=== PATIENT | female | born 1970 | race Hispanic/Latino ===

== ENCOUNTER → 2017-08-29 | Day surgery (SDC) | payer BC ==
[~2017-08-29] MED LIST: CARAFATE1 GM/10 ML PO; FENTANYL CITRATE/PF 100MCG/2 ML INJ ONE; HYDROCODON-ACE1 EAC3 PO; IBUPROFEN PO; LIDOCAINE HCL 2% LOCAL INJ 5 ML SDV VIAL INJ ONE; LYRICA50 MG PO; MIDAZOLAM HCL 2 MG/2 ML VIAL ONE; PHENERGAN25 MG/1 ML PO; PRENATAL MULTI1 EACH; PROPOFOL IV EMULSION 10 MG/ML 20 ML VIAL ONE; PYRIDIUM200 MG PO; SOLODYN80 MG PO; TYLENOL PO; VITAMIN D3400 UNIT PO; Z.0.ADIPEX-P37.5 MG; ZOFRAN ODT4 MG PO
--- OUTSIDE RECORDS SUMMARY | 2017-08-29 06:54 | XMS REPORT | Clinical Summary ---
Author Author [facility] Organization [facility] Address Unknown Phone Unavailable Care Team Providers Care Supervisor Transferring And Boxing Name Role Phone Asked, Pcp PCP Unavailable Allergies Active Allergy Reactions Severity Noted Date Comments Coconut Swelling 09/14/2016 Current Medications Prescription Sig. Disp. Refills Start End Date Status Date ondansetron (ZOFRAN) 4 MG Take 4 mg by mouth every 6 08/24/19 Active tablet 6 (six) hours as needed. 17 CARAFATE 100 mg/mL TAKE 10 MLS DAILY 0 07/20/19 Active suspension NEEDED 17 HEMOCYTE-PLUS 106 mg Take 1 capsule by mouth 2 2 07/06/19 Active iron- 1 mg capsule (two) times a day. 17 LINZESS 290 mcg capsule TAKE 1 CAPSULE BY MOUTH 3 07/10/19 09/15/19 Discontin 30 MINUTES PRIOR TO 17 ued MEAL colesevelam (WELCHOL) 625 Take 1 tablet (625 mg 30 tablet 0 09/15/19 10/15/19 mg tablet total) by mouth daily for 17 17 30 days. promethazine (PHENERGAN) Take 1 tablet (25 mg 90 tablet 0 09/15/19 10/15/19 25 MG tablet total) by mouth every 6 17 17 (six) hours as needed for nausea or vomiting for up to 30 days. Active Problems Problem Noted Date Nausea and vomiting 09/14/2016 Functional diarrhea 09/14/2016 S/P partial gastrectomy 09/14/2016 Family history of gastric cancer 09/14/2016 Family history of colon cancer 09/14/2016 Intestinal metaplasia of gastric mucosa 09/14/2016 Encounters Date Type Specialty Care Team Description 09/29/2016 Telephone Gastroenterology Alka Rodríguez RN 09/29/2016 Telephone Gastroenterology Weston Heath LVN 09/14/2016 Office Visit Gastroenterology Torres Lanza MD Non- intractable vomiting with nausea, unspecified vomiting type (Primary Dx); Functional diarrhea; Intestinal metaplasia of gastric mucosa; S/P partial gastrectomy; Family history of gastric cancer; Family history of colon cancer after 08/28/2016 Social History Tobacco Use Types Packs/Day Years Used Date Never Assessed Sex Assigned at Date Recorded Not on file Last Filed Vital Signs Vital Sign Reading Time Taken Blood Pressure 129/86 09/14/2016 3:47 PM CDT Pulse 83 09/14/2016 3:47 PM CDT Temperature 36.7 C (98 F) 09/14/2016 3:47 PM CDT Respiratory Rate - - Oxygen Saturation - - Inhaled Oxygen - - Concentration Weight 63 kg (139 lb) 09/14/2016 3:47 PM CDT Height 160 cm (5' 3") 09/14/2016 3:47 PM CDT Body Mass Index 24.62 09/14/2016 3:47 PM CDT Plan of Treatment Health Maintenance Due Date Last Done Comments PAP SMEAR 1991 INFLUENZA VACCINE 01/18/2017 Results * Immunoglobulin A (09/17/2016 8:06 AM) Component Value Ref Range IgA 207 81 - 463 mg/dL Specimen Performing Laboratory [facility] Narrative FASTING:YES * Tissue transglutaminase Ab, IgA (09/17/2016 8:06 AM) Component Value Ref Range Tissue transglutaminase <1 U/mL Ab, IgA Comment: <4 No Antibody Detected > OR=4 Antibody Detected Specimen Performing Laboratory [facility] Narrative FASTING:YES * INTERPRETATION (REFLEX [facility]) (09/17/2016 8:06 AM) Component Value Ref Range Interpretation SEE NOTE Comment: No serological evidence of celiac disease. tTG IgA may normalize in individuals with celiac disease who maintain a gluten-free diet. Consider HLA DQ2 and DQ8 testing to rule out celiac disease. Celiac disease is extremely rare in the absence of DQ2 or DQ8. Specimen Performing Laboratory [facility] Narrative FASTING:YES * Gastrin level (09/17/2016 8:06 AM) Component Value Ref Range Gastrin <15 < QX=349 pg/mL Comment: NOTE: Reference range applies to fasting specimen only. Specimen Performing Laboratory Blood [facility] Narrative FASTING:YES after 08/28/2016 Insurance Payer Benefit Subscriber ID Type Phone Address Plan / Group [facility] xxxxxxxxxxxx PPO CHOICE PPO/FEDERA L EMPL PPO BCBS [facility] xxxxxxxxxxxx PPO CHOICE PPO/FEDERA L EMPL PPO Work: [address] [place], [place] [phone] RICH [place] [id number] Home:
== END | disposition home or self-care (01) ==
LOC: OR 06:51
PROVIDERS: ATTEND Surgery
DX: K29.50 Unspecified chronic gastritis without bleeding (principal); Z90.3 Acquired absence of stomach [part of]
CPT/HCPCS: 43239; 81025; 88305; 88312; 93005; J2001; J2250

== ENCOUNTER → 2018-03-02 | Day surgery (SDC) | payer BC ==
[~2018-03-02] MED LIST changes: +DEXAMETHASONE SOD PHOS 10 MG/1 ML VIAL IV ONE; +IOPAMIDOL 200 MG/ML 20 ML VIAL IT ONE; +LIDOCAINE HCL 1% LOCAL INJ 20 ML VIAL ONE; -LIDOCAINE HCL 2% LOCAL INJ 5 ML SDV VIAL INJ ONE; +ONDANSETRON HCL INJ 2 MG/ML VIAL IV ONE; +PHENERGAN PO; +PRENATAL COMPL1 EACH PO; +PROPOFOL IV EMULSION 10 MG/ML 20 ML VIAL IV ONE; -PROPOFOL IV EMULSION 10 MG/ML 20 ML VIAL ONE; +VITAMIN B-12 INJ
[2018-03-02 08:35] VITALS: BP 101/63
--- OUTSIDE RECORDS SUMMARY | 2018-03-23 07:38 | XMS REPORT | Clinical Summary ---
Author Author [facility] Organization [facility] Address Unknown Phone Unavailable Care Team Providers Care Loom Overhauler Name Role Phone Asked, Pcp PCP Unavailable [...] mg capsule (two) times a day. 17 Active Problems Problem Noted Date Nausea and vomiting 09/14/2016 Functional diarrhea 09/14/2016 S/P partial gastrectomy 09/14/2016 Family history of gastric cancer 09/14/2016 Family history of colon cancer 09/14/2016 Intestinal metaplasia of gastric mucosa 09/14/2016 Social History Tobacco Use Types Packs/Day Years Used Date Never Assessed Sex Assigned at Date Recorded Not on file Last Filed Vital Signs Not on file Plan of Treatment Health Maintenance Due Date Last Done Comments CERVICAL CANCER SCREENING 1991 INFLUENZA VACCINE 01/18/2018 Results Not on fileafter 03/01/2017 Insurance Payer Benefit Subscriber ID Type Phone Address Plan / Group BCBS BCBS xxxxxxxxxxxx PPO CHOICE PPO/FEDERA L EMPL PPO BCBS BCBS xxxxxxxxxxxx PPO CHOICE PPO/[place] [address] Home:
== END | disposition home or self-care (01) ==
LOC: OR 05:36
PROVIDERS: ATTEND Physical Medicine & Rehabilitation Pain Medicine
DX: M54.12 Radiculopathy, cervical region (principal); K21.9 Gastro-esophageal reflux disease without esophagitis; M54.81 Occipital neuralgia; G56.02 Carpal tunnel syndrome, left upper limb; Z85.028 Personal history of other malignant neoplasm of stomach; Z90.3 Acquired absence of stomach [part of]
CPT/HCPCS: 77003; 81025; J1100; J2001; J2250; J2405; Q9966

== ENCOUNTER 2018-07-26 18:11 | Emergency (ER) | payer BC ==
[~2018-07-26] VITALS: Ht 160 cm; Wt 63.5 kg
[~2018-07-26 18:11] MED LIST changes: -DEXAMETHASONE SOD PHOS 10 MG/1 ML VIAL IV ONE; -FENTANYL CITRATE/PF 100MCG/2 ML INJ ONE; -IOPAMIDOL 200 MG/ML 20 ML VIAL IT ONE; -LIDOCAINE HCL 1% LOCAL INJ 20 ML VIAL ONE; -MIDAZOLAM HCL 2 MG/2 ML VIAL ONE; -ONDANSETRON HCL INJ 2 MG/ML VIAL IV ONE; -PROPOFOL IV EMULSION 10 MG/ML 20 ML VIAL IV ONE
--- OUTSIDE RECORDS SUMMARY | 2018-07-26 18:15 | XMS REPORT | Clinical Summary ---
Author Author [facility] Organization [facility] Address Unknown Phone Unavailable Care Team Providers Care Director Of Retail Merchandising Name Role Phone Asked, No Pcp PCP Unavailable Allergies Comments Active Allergy Reactions Severity Noted Date Coconut Swelling 09/14/2016 Medications End Date Status Medication Sig Dispensed Refills Start Date Active ondansetron (ZOFRAN) 4 MG Take 4 mg by 6 tablet mouth every 6 7 (six) hours as needed. Active CARAFATE 100 mg/mL TAKE 10 MLS 0 suspension DAILY 7 NEEDED Active HEMOCYTE-PLUS 106 mg Take 1 2 iron- 1 mg capsule capsule by 7 mouth 2 (two) times a day. Active Problems Problem Noted Date Nausea and vomiting 09/14/2016 Functional diarrhea 09/14/2016 S/P partial gastrectomy 09/14/2016 Family history of gastric cancer 09/14/2016 Family history of colon cancer 09/14/2016 Intestinal metaplasia of gastric mucosa 09/14/2016 Social History Date Tobacco Use Types Packs/Day Years Used Never Assessed Sex Assigned at Date Recorded Not on file Industry Job Start Date Occupation Not on file Not on file Not on file Travel End Travel History Travel Start No recent travel history available. Last Filed Vital Signs Not on file Plan of Treatment Health Maintenance Due Date Last Done Comments CERVICAL CANCER SCREENING 1991 INFLUENZA VACCINE 01/18/2018 Results Not on fileafter 07/25/2017 Insurance Payer Benefit Subscriber ID Type Phone Address Plan / Group BCBS BCBS xxxxxxxxxxxx PPO CHOICE PPO/FEDERA L EMPL PPO BCBS BCBS xxxxxxxxxxxx PPO CHOICE PPO/FEDERA L EMPL PPO Advance Directives Patient has advance care planning documents on file. For more information, farzana santos contact: Chris Caruso [address] [place] [address]
--- OUTSIDE RECORDS SUMMARY | 2018-07-26 18:15 | XMS REPORT | Continuity of Care Document ---
Author Author [facility] Address Unknown Phone Unavailable Problems Problem Status Onset Date Classification Date Reported Comments Source Acute sinusitis 09/04/2016 Diagnosis 09/05/2016 [facility] Feeling feverish 09/04/2016 Diagnosis 09/05/2016 [facility] Pain in throat 09/04/2016 Diagnosis 09/05/2016 [facility] Cough 09/04/2016 Diagnosis 09/05/2016 [facility] Acute Urinary Tract Infection Problem 09/05/2016 [facility] Influenza-like Symptoms Problem 09/05/2016 [facility] Medications Medication Details Route Status Patient Instructions Ordering Provider Order Date Source Amoxicillin 875 MG / Clavulanate 125 MG Oral Tablet [Augmentin] Augmentin 875 mg-125 mg tablet Take 1 tablet every 12 hours by oral route with meals for 7 days. Active [facility] Acetaminophen 325 MG / butalbital 50 MG / Caffeine 40 MG Oral Capsule mdcjbsfliy-jbkurgfguogtd-xgdscaxp 50 mg-325 mg-40 mg capsule Active [facility] Cholecalciferol 400 UNT Oral Capsule cholecalciferol (vitamin D3) 400 unit capsule TAKE 1 CAPSULE DAILY. Active [facility] dexlansoprazole 60 MG Delayed Release Oral Capsule [Dexilant] Dexilant 60 mg capsule, delayed release TAKE 1 CAPSULE DAILY EVERY MORNING BEFORE BREAKFAST. Active [facility] Fluarix Quad (PF) 60 mcg (15 mcg x 4)/0.5 mL IM syringe Fluarix Quad (PF) 60 mcg (15 mcg x 4)/0.5 mL IM syringe Active [facility] Hemocyte-Plus 106 mg iron-1 mg capsule Hemocyte-Plus 106 mg iron-1 mg capsule TAKE 1 CAPSULE TWICE DAILY Active [facility] linaclotide 0.29 MG Oral Capsule [Linzess] Linzess 290 mcg capsule Active [facility] pantoprazole 40 MG Delayed Release Oral Tablet pantoprazole 40 mg tablet,delayed release Active [facility] benzonatate 100 MG Oral Capsule [Tessalon Perles] Tessalon Perles 100 mg capsule Take 1 capsule 3 times a day by oral route as needed. Active [facility] Allergies, Adverse Reactions, Alerts Substance Category Reaction Severity Reaction type Status Date Reported Comments Source Immunizations Immunization Date Given Site Status Last Updated Comments Source influenza, injectable, quadrivalent 02/19/2016 completed [facility] influenza, injectable, quadrivalent 03/29/2015 completed [facility] Results Order Name Results Value Reference Range Date Interpretation Comments Source RESULT negative 09/04/2016 [facility] SWAB LOCATION Left and Right tonsillar pillars 09/04/2016 [facility] Influenza A negative 09/04/2016 [facility] Influenza B negative 09/04/2016 [facility] Vital Signs Vital Sign Value Date Comments Source Diastolic (mm Hg) 74 09/04/2016 [facility] Height 63 09/04/2016 [facility] Systolic (mm Hg) 118 09/04/2016 [facility] Weight 139 09/04/2016 [facility] Encounters Location Location Details Encounter Type Encounter Number Reason For Visit Attending Provider ADM Date DC Date Status Source [place] - [facility] - [id number] Patel-C: [address] [place] [address], Ph. [phone] [id number] Chung Gibbs 09/04/2016 [facility] [place] - [facility] [id number] Davidson-C: [address] [place] [address], Ph. [id number] Chung Gibbs 09/04/2016 [facility] Procedures Procedure Code Date Perfomer Comments Source Tubal Ligation [facility]
--- OUTSIDE RECORDS SUMMARY | 2018-07-26 18:16 | XMS REPORT | Encounter Summary ---
Author Organization Unknown Address [address] [place] [address] Phone [phone] Care Team Providers Care Motor And Generator Assembler Name Role Phone Darvin Ramirez MD 3 [phone] Reason for Visit Medical Complaint Instructions 1. Acute sinusitis sinusitis: care instructions Augmentin 875 mg-125 mg tablet 2. Feeling feverish rapid flu (A+B) 3. Pain in throat rapid strep group A, throat 4. Cough Tessalon Perles 100 mg capsule Discussion Note: None recorded. Plan of Care Patient Instructions otc claritin d or zyrtec d. increase fluids. may start on antibiotics in 5-6 days in not better. follow up pcp Reminders Provider Appointments None recorded. Lab Rapid Flu (A+B) 09/04/2016 [facility] Rapid Strep Group a, Throat 09/04/2016 [facility] Referral None recorded. Procedures None recorded. Surgeries None recorded. Imaging None recorded. Medications Name Start Date Augmentin 875 mg-125 mg tablet Take 1 tablet every 12 hours by oral route with meals for 7 days. lmazvfxcfy-ekfbhzcfglupy-xkyzagph 50 mg-325 mg-40 mg capsule cholecalciferol (vitamin D3) 400 unit capsule TAKE 1 CAPSULE DAILY. Dexilant 60 mg capsule, delayed release TAKE 1 CAPSULE DAILY EVERY MORNING BEFORE BREAKFAST. Fluarix Quad [id number] (PF) 60 mcg (15 mcg x 4)/0.5 mL IM syringe Hemocyte-Plus 106 mg iron-1 mg capsule TAKE 1 CAPSULE TWICE DAILY Linzess 290 mcg capsule pantoprazole 40 mg tablet,delayed release Tessalon Perles 100 mg capsule Take 1 capsule 3 times a day by oral route as needed. Medications Administered None recorded. Vitals Height Weight BMI Blood Pressure 5 ft 3 in 139 lbs 24.6 118/74 Lab Results Date Name Result Description Value Range Status Rapid Strep Group a, Throat Result negative Swab Location Left and Right tonsillar pillars Rapid Flu (A+B) Influenza a negative Influenza B negative Allergies Name Reaction Severity Onset NKDA Problems Name Status Onset Date Source Acute Urinary Tract Infection Active Encounter Influenza-like Symptoms Active Encounter Procedures Date Name Performed by Tubal Ligation Information not available Vaccine List Vaccine Type influenza, injectable, quadrivalent 03/28/2015 02/18/2016 Social History Smoking Status Never Smoker Past Encounters 09/04/2016 Acute Sinusitis; Feeling Feverish; Pain in Throat; Cough Chung Kernen, [facility]-C: [address], [place] [address], Ph. History of Present Illness [id number] Reported By: Patient HPI: Location: throat. Quality: sore throat, nasal/sinus congestion, dry cough. Duration: 2days. Severity: moderate. Onset/Timing: gradual. Context: no foreign travel, non-smoker, sick contact. Modifying factors: OTC medication. Associated Symptoms: no sputum production, no shortness of breath, no wheezing, no change in number of pillows needed to sleep at night, no sweats, no significant weight gain, no significant weight loss, no morning cough, no vomiting, no diarrhea, no rash, no nausea, no fever, no muscle aches, sore throat, headache Review of Systems:ROS as noted in the HPI Review of Systems Basic Reported By: Patient Physical Exam Adult Basic, Adult Female Complete Reported By: Patient
--- OUTSIDE RECORDS SUMMARY | 2018-07-26 18:16 | XMS REPORT | Encounter Summary ---
Author Organization Unknown Address [address] [place] [address] Phone [phone] Care Team Providers Care Industrial Hygienist Name Role Phone Darvin Ramirez MD 3 [phone] Reason for Visit Medical Complaint Instructions 1. [...] oral route with meals for 7 days. weycfwfgqo-xoisebgfmrfop-suzrhrsz 50 mg-325 mg-40 mg capsule cholecalciferol (vitamin D3) 400 unit capsule TAKE 1 CAPSULE DAILY. Dexilant 60 mg capsule, delayed release TAKE 1 CAPSULE DAILY EVERY MORNING BEFORE BREAKFAST. Fluarix Quad [id number] (PF) 60 mcg (15 mcg x 4)/0.5 [...] Feeling Feverish; Pain in Throat; Cough Chung Gibbs, BLOWER O[employer]ATOR-C: [address] [facility], [place] [address], Ph. History of Present Illness [id number]-Sqjakoj Reported By: Patient HPI: Location: throat. Quality: [...] Basic, Adult Female Complete Reported By: Patient Constitutional: General Appearance: healthy-appearing, well-nourished, well-developed. Level of Distress: NAD. Ambulation: ambulating normally Psychiatric: Mental Status: active and alert Eyes: Lids and Conjunctivae: non-injected, no discharge Han-Isss-Bptac-Throat: Ears: no lesions on external ear, no outer ear tenderness, EACs clear, TMs clear. Hearing: no hearing loss. Nose: no lesions on external nose, sinus tenderness; congestion. Lips, Teeth, and Gums: no mouth or lip ulcers. Oropharynx: moist mucous membranes, no erythema, no exudates, tonsils not enlarged Neck: Neck: trachea midline. Lymph Nodes: no cervical LAD Lungs: Respiratory effort: no dyspnea, no tachypnea, no use of accessory muscles, no intercostal retractions. Auscultation: breath sounds normal Cardiovascular: Heart Auscultation: RRR, no murmurs
--- NOTE | 2018-07-26 18:40 | NUR ---
REPORT TO JOSHUA MO
== END 2018-07-26 18:56 | disposition home or self-care (01) ==
LOC: FSED 18:11
DX: R50.9 Fever, unspecified (principal); R05 Cough; J00 Acute nasopharyngitis [common cold]
CPT/HCPCS: 87400; 99282

== ENCOUNTER 2018-08-26 15:50 | Emergency (ER) | payer BC ==
[~2018-08-26] VITALS: Ht 160 cm; Wt 63.5 kg
--- OUTSIDE RECORDS SUMMARY | 2018-08-26 15:54 | XMS REPORT | Clinical Summary ---
Author Author [facility] Organization [facility] Address Unknown Phone Unavailable Care Team Providers Care Porcelain Enamel Sprayer Name Role Phone Asked, No Pcp PCP [...] INFLUENZA VACCINE 01/18/2018 Results Not on fileafter 08/25/2017 Insurance Payer Benefit Subscriber ID Type Phone Address Plan / Group BCBS BCBS xxxxxxxxxxxx PPO CHOICE PPO/FEDERA L EMPL PPO BCBS BCBS xxxxxxxxxxxx PPO CHOICE PPO/FEDERA L EMPL PPO Advance Directives Patient has advance care planning documents on file. For more information, farzana santos contact: Chris Caruso [address] [place] [address]
--- OUTSIDE RECORDS SUMMARY | 2018-08-26 15:54 | XMS REPORT | Encounter Summary ---
Author Organization Unknown Address [address] [place] [address] Phone [phone] Care Team Providers Care Private Eye Name Role Phone Darvin Ramirez MD 3 [phone] Reason for Visit Medical Complaint Instructions 1. Urinary tract infectious disease urinary tract infection in women: care instructions Macrobid 100 mg capsule culture, urine urinalysis, dipstick 2. Elevated blood-pressure reading without diagnosis of hypertension elevated blood pressure: care instructions Discussion Note: None recorded. Plan of Care Patient Instructions Drink plenty of water and wear cotton underwear. Please finish all antibiotics, even if you are feeling better. This prevents the infection from coming back. Please seek care or return to [facility] if symptoms do not resolve in 1 week. Reminders Provider Appointments None recorded. Lab Culture, Urine 08/11/2018 [facility] Urinalysis, Dipstick 08/11/2018 [facility] Referral None recorded. Procedures None recorded. Surgeries None recorded. Imaging None recorded. Medications Name Start Date badbnpczsz-snwwtvqrdable-tzafulvo 50 mg-325 mg-40 mg capsule TAKE ONE (1) CAPSULE(S) BY MOUTH EVERY EIGHT HOURS NEEDED FOR HEADACHE. Carafate 100 mg/mL oral suspension TAKE 10 ML(S) BY MOUTH DAILY NEEDED. cholecalciferol (vitamin D3) 400 unit capsule TAKE 1 CAPSULE DAILY. cyclobenzaprine 5 mg tablet diclofenac 1 % topical gel Fluarix Quad [id number] (PF) 60 mcg (15 mcg x 4)/0.5 mL IM syringe Flucelvax Quad [id number] 60 mcg (15 mcg x 4)/0.5 mL IM suspension IMMUNIZATION GIVEN Hemocyte-Plus 106 mg iron-1 mg capsule TAKE ONE (1) CAPSULE(S) BY MOUTH TWICE A DAY. Linzess 290 mcg capsule TAKE 1 CAPSULE BY MOUTH 30 MINUTES PRIOR TO 1ST MEAL Macrobid 100 mg capsule Take 1 capsule every 12 hours by oral route for 5 days. methocarbamol 750 mg tablet ondansetron HCl 4 mg tablet TAKE ONE (1) TABLET(S) BY MOUTH EVERY SIX HOURS NEEDED. prednisone 10 mg tablet trazodone 50 mg tablet TAKE 1 TABLET AT BEDTIME NEEDED FOR SLEEP WelChol 625 mg tablet TAKE ONE (1) TABLET(S) BY MOUTH DAILY. Medications Administered None recorded. Vitals Height Weight BMI Blood Pressure 5 ft 3 in 130 lbs 23 kg/m2 116/80 mm[Hg] Lab Results Date Name Specimen Result Interpretation Description Value Range Status Address Urinalysis, Dipstick Color : Yellow [facility]: [address] [place] [address] Clarity : Cloudy [facility]: [address] [place] [address] Leukocytes : Small [facility]: [address] [place] [address] Nitrites : Positive [facility]: [address] [place] [address] Urobilinogen : Normal [facility]: [address] [place] [address] Protein : Negative [facility]: [address] [place] [address] Ph : 6.5 [facility]: [address] [place] [address] Blood : Moderate [facility]: [address] [place] [address] Specific Franklin : 1.020 [facility]: [address] [place] [address] Ketones : Negative [facility]: [address] [place] [address] Bilirubin : Negative [facility]: [address] [place] [address] Glucose Negative [facility]: [address] [place] [address] Allergies Code Code System Name Reaction Severity Status Onset NKDA Problems No Known Problems Procedures Date Name Performed by Tubal Ligation Information not available Vaccine List Vaccine Type influenza, injectable, quadrivalent 03/29/2015 02/19/2016 03/09/2018 Tdap 06/19/2017 Social History Smoking Status Never Smoker Past Encounters 08/11/2018 Urinary Tract Infectious Disease; Elevated Blood-pressure Reading without Diagnosis of Hypertension Vickie Bustillo, [employer]RICTION SAW OPERATOR-C: [address] [place] [address], Ph. History of Present Illness [id number] Reported By: Patient HPI: Severity: worsening. Duration: started 2 days. Onset/Timing: worse. Context: no known exposure to STD, no prior history of STDs, sexually active. Associated Symptoms: no flank pain, no jaundice, no blood in the urine, no vaginal discharge, no blisters on genitals, no rash on genitals, fever/chills, pain during urination, burning sensation during urination, urgency, hesitancy, urinary frequency, feeling of incomplete emptying of bladder Review of Systems:ROS as noted in the HPI Review of Systems Basic Reported By: Patient Physical Exam Adult Basic, Adult Female Complete, 14-21 Yr Females Reported By: Patient Constitutional: General Appearance: healthy-appearing, well-nourished, well-developed. Level of Distress: NAD. Ambulation: ambulating normally Lungs: Respiratory effort: no dyspnea, no tachypnea, no use of accessory muscles, no intercostal retractions. Auscultation: breath sounds normal, clear to auscultation, no wheezing, no rales/crackles, no rhonchi, no retractions Cardiovascular: Heart Auscultation: RRR, no murmurs, no gallops, no rub, normal femoral pulse. Rate and rhythm: regular Abdomen: Bowel Sounds: normal. Inspection and Palpation: soft, non-distended, no tenderness, no guarding, no rebound tenderness, no masses, no CVA tenderness. Liver: non-tender, no hepatomegaly. Spleen: non-tender, no splenomegaly. Palpation: (normal) bowel sounds
--- OUTSIDE RECORDS SUMMARY | 2018-08-26 15:54 | XMS REPORT | Continuity of Care Document ---
Author Author [facility] Interface Address Unknown Phone Unavailable Problems Problem Status Onset Date Classification Date Reported Comments Source Elevated blood-pressure reading without diagnosis of hypertension 08/11/2018 Diagnosis 08/11/2018 [facility] Urinary tract infectious disease 08/11/2018 Diagnosis 08/11/2018 [facility] Acute sinusitis 09/04/2016 Diagnosis 09/05/2016 [facility] Feeling feverish 09/04/2016 Diagnosis 09/05/2016 [facility] Pain in throat 09/04/2016 Diagnosis 09/05/2016 [facility] Cough 09/04/2016 Diagnosis 09/05/2016 [facility] Acute Urinary Tract Infection Problem 09/05/2016 [facility] Influenza-like Symptoms Problem 09/05/2016 [facility] Lower back pain Active Problem 07/27/2018 [facility] Lumbosacral strain Active Problem 07/27/2018 [facility] Medications Medication Details Route Status Patient Instructions Ordering Provider Order Date Source Pnv Cmb#21/Iron/Folic Acid ( Complete Caplet) 1 Each Tablet, 1 Tab Oral Daily Active 03/01/2018 [facility] Promethazine Hcl (Phenergan) 25 Mg/1 Ml Ampul, 25 Mg Oral As Needed Active 02/08/2018 [facility] Cholecalciferol (Vitamin D3) (Vitamin D3) 400 Unit Tablet, 400 Mg Oral Daily Active 03/30/2017 [facility] Ondansetron (Zofran Odt) 4 Mg Tab.rapdis, 4 Mg Oral Every 6 Hours Active 03/30/2017 [facility] Pnv Cmb#95/Ferrous Fumarate/Fa ( Multivitamins Tablet) 1 Each Tablet, Active 03/30/2017 [facility] Minocycline Hcl (Solodyn) 80 Mg Tab.er.24h, 80 Mg Oral Daily Active 05/01/2015 [facility] Pregabalin (Lyrica) 50 Mg Cap, 50 Mg Oral Three Times A Day Active 05/01/2015 [facility] Hydrocodone Bit/Acetaminophen (Hydrocodon-Acetaminoph 7.5-500) 1 Each Tablet, Oral As Needed Active 03/13/2015 [facility] Ibuprofen , 200 Mg Oral As Needed Active 03/13/2015 [facility] Phenazopyridine Hcl (Pyridium) 200 Mg Tablet, Mg Oral Three Times A Day Active 03/13/2015 [facility] Tylenol , 500 Mg Oral As Needed Active 03/13/2015 [facility] Phentermine Hcl (Adipex-P) 37.5 Mg Capsule, Active 10/06/2012 [facility] Amoxicillin 875 MG / Clavulanate 125 MG Oral Tablet [Augmentin] Augmentin 875 mg-125 mg tablet Take 1 tablet every 12 hours by oral route with meals for 7 days. Active [facility] Acetaminophen 325 MG / butalbital 50 MG / Caffeine 40 MG Oral Capsule zivtumfffr-pfwjudktuzcga-tkftpbnj 50 mg-325 mg-40 mg capsule TAKE ONE (1) CAPSULE(S) BY MOUTH EVERY EIGHT HOURS NEEDED FOR HEADACHE. Active [facility] Cholecalciferol 400 UNT Oral Capsule cholecalciferol (vitamin D3) 400 unit capsule TAKE 1 CAPSULE DAILY. Active [facility] dexlansoprazole 60 MG Delayed Release Oral Capsule [Dexilant] Dexilant 60 mg capsule, delayed release TAKE 1 CAPSULE DAILY EVERY MORNING BEFORE BREAKFAST. Active [facility] Fluarix Quad (PF) 60 mcg (15 mcg x 4)/0.5 mL IM syringe Fluarix Quad [id number] (PF) 60 mcg (15 mcg x 4)/0.5 mL IM syringe Active [facility] Hemocyte-Plus 106 mg iron-1 mg capsule Hemocyte-Plus 106 mg iron-1 mg capsule TAKE ONE (1) CAPSULE(S) BY MOUTH TWICE A DAY. Active [facility] linaclotide 0.29 MG Oral Capsule [Linzess] Linzess 290 mcg capsule TAKE 1 CAPSULE BY MOUTH 30 MINUTES PRIOR TO 1ST MEAL Active [facility] pantoprazole 40 MG Delayed Release Oral Tablet pantoprazole 40 mg tablet,delayed release Active [facility] benzonatate 100 MG Oral Capsule [Tessalon Perles] Tessalon Perles 100 mg capsule Take 1 capsule 3 times a day by oral route as needed. Active [facility] Sucralfate 100 MG/ML Oral Suspension [Carafate] Carafate 100 mg/mL oral suspension TAKE 10 ML(S) BY MOUTH DAILY NEEDED. Active [facility] Cyclobenzaprine hydrochloride 5 MG Oral Tablet cyclobenzaprine 5 mg tablet Active [facility] Diclofenac Sodium 0.01 MG/MG Topical Gel diclofenac 1 % topical gel Active [facility] influenza A virus A/[place] (H3N2) antigen 0.03 MG/ML / influenza A virus A//[id number]/2015 (H1N1) antigen 0.03 MG/ML / influenza B virus B/ antigen 0.03 MG/ML / influenza B virus B/[facility]/[id number]/2016 antigen 0.03 MG/ML Injectable Suspension [Flucelvax Quadrivalent 2728-4922] Flucelvax Quad [id number] 60 mcg (15 mcg x 4)/0.5 mL IM suspension IMMUNIZATION GIVEN Active [facility] NITROFURANTOIN, MACROCRYSTALS 25 MG / Nitrofurantoin, Monohydrate 75 MG Oral Capsule [Macrobid] Macrobid 100 mg capsule Take 1 capsule every 12 hours by oral route for 5 days. Active [facility] Methocarbamol 750 MG Oral Tablet methocarbamol 750 mg tablet Active [facility] Ondansetron 4 MG Oral Tablet ondansetron HCl 4 mg tablet TAKE ONE (1) TABLET(S) BY MOUTH EVERY SIX HOURS NEEDED. Active [facility] Prednisone 10 MG Oral Tablet prednisone 10 mg tablet Active [facility] Trazodone Hydrochloride 50 MG Oral Tablet trazodone 50 mg tablet TAKE 1 TABLET AT BEDTIME NEEDED FOR SLEEP Active [facility] Colesevelam hydrochloride 625 MG Oral Tablet [Welchol] WelChol 625 mg tablet TAKE ONE (1) TABLET(S) BY MOUTH DAILY. Active [facility] Ondansetron (Zofran Odt) 4 Mg Tab.rapdis As Needed Active [facility] Phenergan As Needed Active [facility] Sucralfate (Carafate) 1 Gm/10 Ml Oral.susp Four Times Daily Active [facility] Vitamin B-12 Mthly Active [facility] Allergies, Adverse Reactions, Alerts Substance Category Reaction Severity Reaction type Status Date Reported Comments Source Immunizations Immunization Date Given Site Status Last Updated Comments Source influenza, injectable, quadrivalent 03/09/2018 completed [facility] Tdap 06/19/2017 completed [facility] influenza, injectable, quadrivalent 02/19/2016 completed [facility] influenza, injectable, quadrivalent 03/29/2015 completed [facility] Results Order Name Results Value Reference Range Date Interpretation Comments Source Urinalysis macro (dipstick) panel - Urine COLOR : Yellow 08/11/2018 [facility] Urinalysis macro (dipstick) panel - Urine CLARITY : Cloudy 08/11/2018 [facility] Urinalysis macro (dipstick) panel - Urine LEUKOCYTES : Small 08/11/2018 [facility] Urinalysis macro (dipstick) panel - Urine NITRITES : Positive 08/11/2018 [facility] Urinalysis macro (dipstick) panel - Urine UROBILINOGEN : Normal 08/11/2018 [facility] Urinalysis macro (dipstick) panel - Urine PROTEIN : Negative 08/11/2018 [facility] Urinalysis macro (dipstick) panel - Urine pH : 6.5 08/11/2018 [facility] Urinalysis macro (dipstick) panel - Urine BLOOD : Moderate 08/11/2018 [facility] Urinalysis macro (dipstick) panel - Urine SPECIFIC GRAVITY : 1.020 08/11/2018 [facility] Urinalysis macro (dipstick) panel - Urine KETONES : Negative 08/11/2018 [facility] Urinalysis macro (dipstick) panel - Urine BILIRUBIN : Negative 08/11/2018 [facility] Urinalysis macro (dipstick) panel - Urine GLUCOSE Negative 08/11/2018 [facility] Urine human chorionic gonadotropin (hCG) detection NEGATIVE NEGATIVE 03/02/2018 [facility] RESULT negative 09/04/2016 [facility] SWAB LOCATION Left and Right tonsillar pillars 09/04/2016 [facility] Influenza A negative 09/04/2016 [facility] Influenza B negative 09/04/2016 [facility] Vital Signs Vital Sign Value Date Comments Source Diastolic (mm Hg) 80 08/11/2018 [facility] Height 63 08/11/2018 [facility] Systolic (mm Hg) 116 08/11/2018 [facility] Weight 130 08/11/2018 [facility] Diastolic (mm Hg) 74 09/04/2016 [facility] Height 63 09/04/2016 [facility] Systolic (mm Hg) 118 09/04/2016 [facility] Weight 139 09/04/2016 [facility] Encounters Location Location Details Encounter Type Encounter Number Reason For Visit Attending Provider ADM Date DC Date Status Source [place] - [facility] - [id number] Davidson-C: [address] [place] [address], Ph. [phone] [id number] Chung Gibbs 09/04/2016 [facility] [place] - [facility] - [id number] Davidson-C: [address] [place] [address], Ph. [id number] Chung Gibbs 09/04/2016 [facility] Registered Surgical Day Care [id number] GREGG EVANS MD 02/09/2018 [facility] Registered Surgical Day Care [id number] GREGG EVANS MD 03/02/2018 [facility] Departed Emergency Room [id number] HILLARY AG MD 07/26/2018 07/26/2018 [facility] [place] - [facility] - [id number] DEBORA Carrera-C: [address] [place] [address], Ph. [phone] [id number] Vickie Bustillo 08/11/2018 [facility] Procedures Procedure Code Date Perfomer Comments Source INJ FORAMEN EPIDURAL C/T 84575 03/02/2018 EMMANUELSCOTLANDRAMIRO [facility] INJ FORAMEN EPIDURAL ADD-ON 72526 03/02/2018 EMMANUELSCOTLANDRAMIRO [facility] INJ FORAMEN EPIDURAL C/T 60747 02/09/2018 [facility] INJ FORAMEN EPIDURAL ADD-ON 06432 02/09/2018 [facility] Tubal Ligation [facility]
[2018-08-26] MEDS ORDERED: KETOROLAC TROMETHAMINE 30 MG/ML VIAL IM NR (16:30)
[2018-08-26] MEDS ORDERED: ONDANSETRON HCL 4 MG ORAL DISINTEGRATING TAB PO STA (16:31)
--- NOTE | 2018-08-26 17:07 | Diagnostic Imaging Report ---
Right complete knee. CPT CODE: 34122. INDICATION: Fall COMPARISON: None FINDINGS: No evidence of acute fracture or dislocation. Mild medial and patellofemoral compartment narrowing. Trace joint effusion. Tiny flabella in the popliteal fossa. IMPRESSION: No acute traumatic pathology. Degenerative changes as described above with tiny joint effusion. Signed by: Dr. Bre Lanier MD on 08/26/2018 5:04 PM
--- NOTE | 2018-08-26 17:08 | Diagnostic Imaging Report ---
Left complete knee. CPT CODE: 97055. INDICATION: Fall COMPARISON: None FINDINGS: No evidence of acute fracture or dislocation. There is mild medial and patellofemoral compartment narrowing with prominence of the tibial spines. No joint effusion. There is a tiny flabella in the popliteal fossa. IMPRESSION: No acute traumatic pathology. Mild degenerative changes of the knee. Signed by: Dr. Bre Lanier MD on 08/26/2018 5:05 PM
== END 2018-08-26 17:57 | disposition home or self-care (01) ==
LOC: FSED 15:50
DX: S80.02XA Contusion of left knee, initial encounter (principal); S80.01XA Contusion of right knee, initial encounter; W01.0XXA Fall on same level from slipping, tripping and stumbling without subsequent striking against object, initial encounter; Y92.488 Other paved roadways as the place of occurrence of the external cause; Z87.11 Personal history of peptic ulcer disease
CPT/HCPCS: 73562 ×2; 99284; Q0162

== ENCOUNTER → 2018-12-30 | Day surgery (SDC) | payer BC ==
[~2018-12-30] MED LIST changes: +FENTANYL CITRATE/PF 100MCG/2 ML INJ ONE; +FERROUS FUMARA324 MG PO; +MIDAZOLAM HCL 2 MG/2 ML VIAL ONE; +ROCURONIUM BROMIDE 10 MG/ML 5ML VIAL ONE
--- OUTSIDE RECORDS SUMMARY | 2018-12-30 12:17 | XMS REPORT | Clinical Summary ---
Author Author [facility] Address Unknown Phone Unavailable Care Team Providers Care Supervisor [address] Name Role Phone Asked, No Pcp PCP [...] Health Maintenance Due Date Last Done Comments INFLUENZA VACCINE 01/18/2019 Results Not on fileafter 12/29/2017 Insurance Type Payer Benefit Subscriber ID Effective Phone Address Plan / Dates Group PPO BCBS BCBS xxxxxxxxxxxx 2016-P CHOICE resent PPO/[employer] PPO PPO BCBS BCBS xxxxxxxxxxxx 2015- CHOICE Present PPO/[employer] PPO Advance Directives Patient has advance care planning documents on file. For more information, farzana santos contact: Chris Caruso [address] [place] [address]
--- OUTSIDE RECORDS SUMMARY | 2018-12-30 12:18 | XMS REPORT ---
[facility] Address Unknown Phone Unavailable Care Team Providers Care Storeroom Supervisor Name Role Phone JEN GUNDERSON Unavailable Unavailable Problems This patient has no known problems. Allergies, Adverse Reactions, Alerts This patient has no known allergies or adverse reactions. Medications This patient has no known medications. Results Test Description Test Time Test Comments Text Results Atomic Results Result Comments KNEE 3VW LT - HOPD 2018-08-26 17:04:00 [place] [address] Patient Name: BRADLEY RIVERA MR #: [id number] : 1970 Age/Sex: 48/F Req #: [id number] [facility] Physician: Ordered by: JEN GUNDERSON MD Report #: [id number] Location: [facility] Room/Bed: Procedure: [id number] HOPD/KNEE 3VW LT - HOPD Exam Date: 08/26/18 Exam Time: 1654 REPORT STATUS: Signed Left complete knee. CPT CODE: 78918. INDICATION: Fall COMPARISON: None FINDINGS: No evidence of acute fracture or dislocation. There is mild medial and patellofemoral compartment narrowing with prominence of the tibial spines. No joint effusion. There is a tiny flabella in the popliteal fossa. IMPRESSION: No acute traumatic pathology. Mild degenerative changes of the knee. Signed by: Dr. Argentina Lanier MD on 08/26/2018 5:05 PM Dictated By: ARGENTINA LANIER MD 04 Transcribed By: MAXINE on 08/26/181704 COPY TO: JEN GUNDERSON MD KNEE 3VW RT - HOPD 2018-08-26 17:03:00 [place] [address] Patient Name: BRADLEY RIVERA MR #: [id number] : 1970 Age/Sex: 48/F Req #: [id number] Adm Physician: Ordered by: JEN GUNDERSON MD Report #: [id number] Location: [facility] Room/Bed: Procedure: [id number] HOPD/KNEE 3VW RT - HOPD Exam Date: 08/26/18 Exam Time: 1654 REPORT STATUS: Signed Right complete knee. CPT CODE: 48375. INDICATION: Fall COMPARISON: None FINDINGS: No evidence of acute fracture or dislocation. Mild medial and patellofemoral compartment narrowing. Trace joint effusion. Tiny flabella in the popliteal fossa. IMPRESSION: No acute traumatic pathology. Degenerative changes as described above with tiny joint effusion. Signed by: Dr. Argentina Lanier MD on 08/26/2018 5:04 PM Dictated By: ARGENTINA LANIER MD 03 Transcribed By: MAXINE on 08/26/181703 COPY TO: JEN GUNDERSON MD
--- OUTSIDE RECORDS SUMMARY | 2018-12-30 12:18 | XMS REPORT | Continuity of Care Document ---
Author Author [facility] Address Unknown Phone Unavailable Care Team Providers Care Surgical Services Assistant Name Role Phone [employer] Unavailable Unavailable Problems Problem Status Onset Date Classification [...] 09/05/2016 [facility] Lower back pain Active Problem 08/26/2018 [facility] Lumbosacral strain Active Problem 08/26/2018 [facility] Medications Medication Details Route Status Patient Instructions Ordering Provider Order Date Source Pnv Cmb#21/Iron/Folic Acid ( Complete Caplet) 1 Each Tablet, 1 Tab Oral Daily Active 03/01/2018 [facility] Promethazine Hcl (Phenergan) 25 Mg/1 Ml Ampul, 25 Mg Oral As Needed Active 02/08/2018 [facility] Cholecalciferol (Vitamin D3) (Vitamin D3) 400 Unit Tablet, 400 Mg Oral Daily Active 03/30/2017 [facility] Ondansetron (Zofran Odt) 4 Mg Tab.rapdis, 4 Mg Oral Every 6 Hours Active 03/30/2017 [facility] Pnv Cmb#95/Ferrous Fumarate/Fa ( Multivitamins Tablet) 1 Each Tablet, Active 03/30/2017 [facility] Minocycline Hcl (Solodyn) 80 Mg Tab.er.24h, 80 Mg Oral Daily Active 05/01/2015 [facility] Pregabalin (Lyrica) 50 Mg Cap, 50 Mg Oral Three Times A Day Active 05/01/2015 [facility] Hydrocodone Bit/Acetaminophen (Hydrocodon-Acetaminoph 7.5-500) 1 Each Tablet, Oral As Needed Active 03/13/2015 [facility] Ibuprofen , 200 Mg Oral As Needed Active 03/13/2015 [facility] Phenazopyridine Hcl (Pyridium) 200 Mg Tablet, Mg Oral Three Times A Day Active 03/13/2015 [facility] Tylenol , 500 Mg Oral As Needed Active 03/13/2015 [facility] Phentermine Hcl (Adipex-P) 37.5 Mg Capsule, Active 10/06/2012 [facility] Acetaminophen 325 MG / butalbital 50 MG / Caffeine 40 MG Oral Capsule uzisrwjgnk-kzqmtoggtdtjz-traizdra 50 mg-325 mg-40 mg capsule TAKE ONE (1) CAPSULE(S) BY MOUTH EVERY EIGHT HOURS NEEDED FOR HEADACHE. Active [facility] Sucralfate 100 MG/ML Oral Suspension [Carafate] Carafate 100 mg/mL oral suspension TAKE 10 ML(S) BY MOUTH DAILY NEEDED. Active [facility] Cholecalciferol 400 UNT Oral Capsule cholecalciferol (vitamin D3) 400 unit capsule TAKE 1 CAPSULE DAILY. Active [facility] Cyclobenzaprine hydrochloride 5 MG Oral Tablet cyclobenzaprine 5 mg tablet Active [facility] Diclofenac Sodium 0.01 MG/MG Topical Gel diclofenac 1 % topical gel Active [facility] Fluarix Quad (PF) 60 mcg (15 mcg x 4)/0.5 mL IM syringe Fluarix Quad (PF) 60 mcg (15 mcg x 4)/0.5 mL IM syringe Active [facility] influenza A virus A/[place] (H3N2) antigen 0.03 MG/ML / influenza A virus A/YD6750/2015 (H1N1) antigen 0.03 MG/ML / influenza B virus B/ antigen 0.03 MG/ML / influenza B virus B//[id number]/2016 antigen 0.03 MG/ML Injectable Suspension [Flucelvax Quadrivalent ] Flucelvax Quad 60 mcg (15 mcg x 4)/0.5 mL IM suspension IMMUNIZATION GIVEN Active [facility] Hemocyte-Plus 106 mg iron-1 mg capsule Hemocyte-Plus 106 mg iron-1 mg capsule TAKE ONE (1) CAPSULE(S) BY MOUTH TWICE A DAY. Active [facility] linaclotide 0.29 MG Oral Capsule [Linzess] Linzess 290 mcg capsule TAKE 1 CAPSULE BY MOUTH 30 MINUTES PRIOR TO 1ST MEAL Active [facility] NITROFURANTOIN, MACROCRYSTALS 25 MG / [...] (1) TABLET(S) BY MOUTH DAILY. Active [facility] Amoxicillin 875 MG / Clavulanate 125 MG Oral Tablet [Augmentin] Augmentin 875 mg-125 mg tablet Take 1 tablet every 12 hours by oral route with meals for 7 days. Active [facility] dexlansoprazole 60 MG Delayed Release Oral Capsule [Dexilant] Dexilant 60 mg capsule, delayed release TAKE 1 CAPSULE DAILY EVERY MORNING BEFORE BREAKFAST. Active [facility] pantoprazole 40 MG Delayed Release Oral Tablet pantoprazole 40 mg tablet,delayed release Active [facility] benzonatate 100 MG Oral Capsule [Tessalon Perles] Tessalon Perles 100 mg capsule Take 1 capsule 3 times a day by oral route as needed. Active [facility] Ondansetron (Zofran Odt) 4 Mg Tab.rapdis As Needed Active [facility] Phenergan As Needed Active [facility] Sucralfate (Carafate) 1 Gm/10 Ml Oral.susp Four Times Daily Active [facility] Vitamin B-12 Mthly Active [facility] Allergies, Adverse Reactions, Alerts No Known Medication Allergies Immunizations Immunization Date Given Site Status Last [...] chorionic gonadotropin (hCG) detection NEGATIVE NEGATIVE 03/02/2018 [facility] RESULT negative 09/04/2016 [facility] SWAB LOCATION Left and Right tonsillar pillars 09/04/2016 [facility] Influenza A negative 09/04/2016 [facility] Influenza B negative 09/04/2016 [facility] Pathology Reports No Data Provided for This Section Diagnostic Reports No Data Provided for This Section Consultation Notes No Data Provided for This Section Discharge Summaries No Data Provided for This Section History and Physicals No Data Provided for This Section Vital Signs Vital Sign Value Date Comments [...] Date Status Source [place] - [facility] - [id number] DavidsonC: [address] [place] [address], Ph. [id number] Chung Gibbs 09/04/2016 [facility] [place] - [facility] - [id number] Davidson-C: [address] [place] [address], Ph. [phone] [id number] Chung Gibbs 09/04/2016 [facility] Registered Surgical Day Care [id number] GREGG EVANS MD 02/09/2018 [facility] Registered Surgical Day Care [id number] GREGG EVANS MD 03/02/2018 [facility] Departed Emergency Room [id number] HILLARY AG MD 07/26/2018 07/26/2018 [facility] [place] - [facility] - [id number] FortuneC: [address] [place] [address], Ph. [id number] Vickie Bustillo 08/11/2018 [facility] Departed Emergency Room [id number] JEN GUNDERSON MD 08/26/2018 08/26/2018 [facility] Procedures Procedure Code Date Perfomer Comments Source INJ FORAMEN EPIDURAL C/T 28623 03/02/2018 [facility] INJ FORAMEN EPIDURAL ADD-ON 44867 03/02/2018 [facility] INJ FORAMEN EPIDURAL C/T 65398 02/09/2018 [facility] INJ FORAMEN EPIDURAL ADD-ON 09411 02/09/2018 [facility] Tubal Ligation [facility] Assessment and Plan No Data Provided for This Section Plan of Care Plan of Care Date Source Discharge Date 08/26/18 5:57pm Disposition HOME, SELF-CARE Condition at Discharge Stable Instructions/Education Provided Abrasion Contusion Crutch Use Fall Prevention Wound Care (General) Forms Provided Work/School Excuse Prescriptions See Medication Section Referrals NAI GARCIA MD Order Date: Call for an appointment Address: [address] [place] [address] LIZA OCHOA MD Address: [address] [place] [address] [phone] 08/26/2018 [facility] Discharge Date 07/26/18 6:56pm Disposition HOME, SELF-CARE Condition at Discharge Stable Instructions/Education Provided Common Cold - Adult Forms Provided Work/School Excuse Prescriptions See Medication Section Referrals NAI GARCIA MD Address: [address] [place] [id number] Additional Instructions/Education REST; TAKE MEDICATIONS PRESCRIBED; FOLLOW UP WITH YOUR PCP 07/26/2018 [facility] Social History Social History Date Source Social History Problem Response Recorded Date/Time Onset Date Status Hx Psychiatric Problems No 09/17/2013 3:53pm Not Applicable Not Applicable Hx Depression No 09/17/2013 3:53pm Not Applicable Not Applicable Hx Alcohol Use Y - More than 10 years ago 09/17/2013 3:53pm Not Applicable Not Applicable Hx Substance Use Treatment No 09/17/2013 3:53pm Not Applicable Not Applicable Hx Physical Abuse No 09/17/2013 3:53pm Not Applicable Not Applicable 08/26/2018 [facility] Smoking Status Never Smoker 06/17/2015 [facility] Family History No Data Provided for This Section Advance Directives Order Name Results Value Date Source Advance Directives Advance Directives Directive Response Recorded Date/Time Does the patient have an advance directive? No 09/17/16 5:26pm If yes, is advance directive on file with [facility]? No 01/28/07 12:36pm If not on file with [facility] will patient provide a copy? No 01/05/17 4:09pm Do you have a Directive to Physician? No 08/26/18 4:25pm Do you have a Medical Power of Shop Manager? No 08/26/18 4:25pm Do you have an out of hospital Do Not Resuscitate Order? No 08/26/18 4:25pm Do you have any special needs we should be aware of? No 08/26/18 4:25pm Do you have a support person here with you today? Yes 08/26/18 4:25pm Did patient receive Notice of Privacy Practices? Yes 08/26/18 4:25pm Did patient receive patient rights and responsibilities? Yes 08/26/18 4:25pm 08/26/2018 [facility] Advance Directives Advance Directives Directive Response Recorded Date/Time Does the patient have an advance directive? No 09/17/16 5:26pm If yes, is advance directive on file with [facility]? No 01/28/07 12:36pm If not on file with [facility] will patient provide a copy? No 01/05/17 4:09pm Do you have a Directive to Physician? No 07/26/18 6:36pm Do you have a Medical Power of Shop Manager? No 07/26/18 6:36pm Do you have an out of hospital Do Not Resuscitate Order? No 07/26/18 6:36pm Do you have any special needs we should be aware of? No 07/26/18 6:36pm Do you have a support person here with you today? No 07/26/18 6:36pm Did patient receive Notice of Privacy Practices? Yes 07/26/18 6:36pm Did patient receive patient rights and responsibilities? Yes 07/26/18 6:36pm 07/26/2018 [facility] Functional Status No Data Provided for This Section
--- NOTE | 2018-12-30 19:15 | Operative Report ---
DATE OF PROCEDURE: 12/30/2018 SURGEON: Jaylon Prado MD PROCEDURE: Esophagogastroduodenoscopy with biopsies and esophageal dilatation. INDICATIONS FOR EGD: Upper abdominal pain, dysphagia. MEDICATIONS: The patient was done under MAC, please see anesthesiologist's note. PROCEDURE IN DETAIL: With the patient in left lateral decubitus position, flexible fiberoptic Olympus gastroscope was introduced into the esophagus under direct visualization without any difficulty. There was some patchy erythema noted in distal esophagus. The esophagus was dilated to size 52-[place] Pimentel. The scope was then advanced with ease into the stomach and the patient appears to be status post Shelton-en-Y. The anastomosis was intact. Afferent loop was patent. Biopsies were obtained from the gastric stump. The scope was then retroflexed and postoperative changes were noted. The scope was then straightened out and it was subsequently withdrawn. The patient tolerated procedure well. IMPRESSION: 1. Distal esophagitis, mild. 2. Esophageal stricture at GE junction, dilated to size 52-[place] Pimentel. 3. Status post Shelton-en-Y. Anastomosis intact. No marginal ulcers noted. Biopsies were obtained from the gastric stump. PLAN: Follow up histology. Continue Carafate 1 g p.o. a.c. t.i.d. and at bedtime. Add Dexilant 60 mg one p.o. q.a.m. a.c. If pain continues, we will proceed with a CT scan of the abdomen. Jaylon Prado MD [facility] [place] /[id number] cc: Darvin Ramirez MD
== END | disposition home or self-care (01) ==
LOC: OR 11:40
PROVIDERS: ATTEND Internal Medicine Gastroenterology
DX: R10.10 Upper abdominal pain, unspecified (principal); Z85.028 Personal history of other malignant neoplasm of stomach; K22.2 Esophageal obstruction; K20.9 Esophagitis, unspecified; Z98.84 Bariatric surgery status; Z90.3 Acquired absence of stomach [part of]; K21.9 Gastro-esophageal reflux disease without esophagitis; F41.9 Anxiety disorder, unspecified; Z68.25 Body mass index [BMI] 25.0-25.9, adult; Z80.0 Family history of malignant neoplasm of digestive organs
CPT/HCPCS: 43239; 43450; 81025; J2250; 45380; J3010

== ENCOUNTER → 2019-02-13 | Outpatient (CLI) | payer BC ==
[~2019-02-13] MED LIST changes: -FENTANYL CITRATE/PF 100MCG/2 ML INJ ONE; -MIDAZOLAM HCL 2 MG/2 ML VIAL ONE; -ROCURONIUM BROMIDE 10 MG/ML 5ML VIAL ONE
--- NOTE | 2019-02-20 09:29 | Diagnostic Imaging Report ---
#[id number] - MGSCRBIL #BILATERAL DIGITAL SCREENING MAMMOGRAM WITH CAD: 02/13/2019 CLINICAL: Routine screening. Comparison is made to exams dated: 12/10/2014 mammogram, 11/08/2014 mammogram and 08/09/2012 mammogram - [facility]. Current study contains 4 films. The tissue of both breasts is heterogeneously dense. This may lower the sensitivity of mammography. Current study was also evaluated with a Computer Aided Detection (CAD) system. Benign appearing calcifications are noted bilaterally. No significant masses, calcifications, or other findings are seen in either breast. IMPRESSION: BENIGN There is no mammographic evidence of malignancy. A 1 year screening mammogram is recommended. The patient will be notified by letter of the results. DOROTHY MCGRAW M.D. ct/penrad:02/16/2019 15:56:02 [place] Interpreter: Alise DEGROOT(R)(M), [facility] letter sent: Normal Exam Mammogram BI-RADS: 2 Benign
== END ==
LOC: MAMMO 16:09
PROVIDERS: ATTEND Internal Medicine
DX: Z12.31 Encounter for screening mammogram for malignant neoplasm of breast (principal)
CPT/HCPCS: 77067

== ENCOUNTER → 2020-04-16 | Outpatient (CLI) | payer BC ==
[~2020-04-16] MED LIST changes: +IOPAMIDOL 370 MG/ML 200 ML INFUS..BTL INJ ONE; +MELOXICAM7.5 MG PO; +MULTI-VITAMIN1 EACH; +MULTIVITAMINS1 EAC7; +SODIUM CHLORIDE 0.9% 50ML 50 ML ONE; +ULTRAM50 MG PO
--- NOTE | 2020-04-16 18:39 | Diagnostic Imaging Report ---
EXAM: CT Chest WITH contrast (PE Protocol) INDICATION: ^[id number] ^1800 ^CHEST PAIN;PAINFUL RESPIRATION COMPARISON: None TECHNIQUE: Chest was scanned utilizing a multidetector helical scanner from the lung apex through the level of the diaphragm after administration of IV contrast. Thin section reconstructions were obtained with special concentration on the pulmonary arteries. Coronal and sagittal reformations were obtained. Pulmonary embolism protocol was performed. IV CONTRAST: 100 mL of Isovue 370 COMPLICATIONS: None RADIATION DOSE: Total DLP: 502.33 mGy*cm Estimated effective dose: (DLP x 0.014 x size factor) mSv CTDIvol has been reviewed. It is below the limits set by the Radiation Protocol Committee (RPC). Dose modulation, iterative reconstruction, and/or weight based adjustment of the mA/kV was utilized to reduce the radiation dose to as low as reasonably achievable. FINDINGS: LINES/ TUBES: None. LUNGS AND AIRWAYS: No filling defect is identified within the pulmonary arteries to the segmental level. Lungs are clear. No suspicious pulmonary nodules or consolidations. Airways are normal. PLEURA: The pleural spaces are clear. HEART AND MEDIASTINUM: The thyroid gland is normal. No mediastinal, hilar or axillary lymphadenopathy. The heart is normal in size. There is no pericardial effusion. Minimal episodic calcifications of the aortic arch. Main pulmonary artery measures 2.1 cm in diameter and the ascending aorta measures 2.7 cm. UPPER ABDOMEN: Status post gastric surgery with sutures in the stomach wall. Otherwise, visualized portions of the upper abdomen are unremarkable given limitations with timing of contrast bolus. BONES: No acute osseous abnormality. Mild multilevel degenerative changes of the thoracic spine. SOFT TISSUES: Unremarkable. IMPRESSION: 1. No pulmonary emboli. 2. No acute abnormalities in the chest. Signed by: Dr. Jean Valle M.D. on 04/16/2020 6:36 PM
== END ==
LOC: CT 17:42
PROVIDERS: ATTEND Internal Medicine
DX: R07.9 Chest pain, unspecified (principal); R07.1 Chest pain on breathing
CPT/HCPCS: 71260; Q9967

== ENCOUNTER 2020-11-27 12:49 | Emergency (ER) | payer BC ==
[~2020-11-27] VITALS: Ht 160 cm; Wt 61.7 kg
[~2020-11-27 12:49] MED LIST changes: -IOPAMIDOL 370 MG/ML 200 ML INFUS..BTL INJ ONE; -SODIUM CHLORIDE 0.9% 50ML 50 ML ONE
[2020-11-27] MEDS ORDERED: VITAMIN B122500 MCG (13:49)
[2020-11-27] MEDS ORDERED: KETOROLAC TROMETHAMINE 30 MG/ML VIAL IV STA (13:58)
[2020-11-27] MEDS ORDERED: CYCLOBENZAPRINE HCL 10 MG TAB PO ONE (14:00)
[2020-11-27] MEDS ORDERED: CYCLOBENZAPRINE HCL 10 MG TAB ONE (14:13)
[2020-11-27] MEDS ORDERED: DEXAMETHASONE SOD PHOS INJ 4 MG/ML VIAL ONE (14:13)
[2020-11-27] MEDS ORDERED: KETOROLAC TROMETHAMINE 30 MG/ML VIAL ONE (14:13)
[2020-11-27] MEDS ORDERED: DEXAMETHASONE SOD PHOS INJ 4 MG/ML VIAL IV ONE (14:15)
[2020-11-27] MEDS ORDERED: ONDANSETRON HCL INJ 2MG/ML 2ML 2 MG/ML VIAL IV STA (14:23)
[2020-11-27] MEDS ORDERED: ONDANSETRON HCL INJ 2MG/ML 2ML 2 MG/ML VIAL ONE (14:26)
[2020-11-27] MEDS ORDERED: NAPROSYN500 MG PO (16:01)
[2020-11-27] MEDS ORDERED: FAMOTIDINE40 MG PO (16:03)
[2020-11-27] MEDS ORDERED: CYCLOBENZAPRINE10 MG PO (16:05)
[2020-11-27] MEDS ORDERED: TYLENOL # 31 EA PO (16:12)
[2020-11-27] MEDS ORDERED: CEFDINIR300 MG PO (16:21)
== END 2020-11-27 16:27 | disposition home or self-care (01) ==
LOC: FSED 13:06
DX: S39.012A Strain of muscle, fascia and tendon of lower back, initial encounter (principal); K21.9 Gastro-esophageal reflux disease without esophagitis; F41.9 Anxiety disorder, unspecified; G89.29 Other chronic pain; Z85.028 Personal history of other malignant neoplasm of stomach
CPT/HCPCS: 80053; 81003; 85025; 93005; 96374; 96375; 99283; J1100; J1885; J2405